=== PATIENT | male | born 1985 | race Caucasian/White ===

== ENCOUNTER 2024-01-10 16:10 | Emergency (ER) | payer MEDICAID, OTHER, SELFPAY ==
[2024-01-10 16:13] VITALS: BP 160/85; PULSE 96; RESP 16; TEMP 36.8; O2SAT 97; BMI 37.6
--- NOTE | 2024-01-10 16:50 | ED.EYEPROB ---
HPI - Eye Problem <Omayra Parrish PA-C - Last Filed: 01/10/24 17:41> General Chief complaint: Eye Problems Stated complaint: foreign object in eye Source: patient Mode of arrival: Family Vehicle History of Present Illness HPI Narrative: 38-year-old male presents this afternoon for left eye discomfort. Yesterday around lunchtime he was trying on sunglasses at a local drug store when the adams tag struck his left eye. He states it was made of a rigid card stalk. He had immediate pain and since then it has worsened. He reports increased tearing, some sensitivity to light and also some whitish thick drainage from the eye. He is denying any changes in his vision overall, he does not wear prescription glasses or contact lenses. He did try an wpwe-bho-[id number] eyedrop called Rohto/Clear eyes, some type of multi symptom drop that actually burned when he instilled it so he stopped. Pain is worse with movement of the eye. No other treatment tried although he did purchase an eye patch. No other complaints, no headache, or other injuries, all other systems are reviewed and are negative. Related Data Allergies Allergy/AdvReac Type Severity Reaction Status Date / Time Sulfa (Sulfonamide Allergy Mild Verified 01/10/24 16:57 Antibiotics) Patient History <Omayra Parrish PA-C - Last Filed: 01/10/24 17:41> Social History Smoking Status: Current every day smoker Exam <Omayra Parrish PA-C - Last Filed: 01/10/24 17:41> Initial Vital Signs Initial Vital Signs: Vital Signs Temperature 98.2 F 01/10/24 16:13 Pulse Rate 96 H 01/10/24 16:13 Respiratory Rate 16 01/10/24 16:13 Blood Pressure 160/85 H 01/10/24 16:13 Pulse Oximetry 97 01/10/24 16:13 Oxygen Delivery Method Room Air 01/10/24 16:13 Reviewed and are normal except for elevated systolic reading. Const Other: Ambulatory, seated, smiling, no distress, pleasantly conversing, wearing black eye patch over left eye. [facility] Head: normal to inspection, normocephalic and atraumatic Nose: external nose normal, nares normal and nasal mucous membranes and turbinates normal Face and sinus: normal facial exam and sinuses nontender Eyes Visual Villarreal: normal visual villarreal by confrontation Alignment and Position: alignment normal and position normal Periorbital: periorbital findings normal Eyelids: eyelids normal Conjunctivae: conjunctival abnormality (Injection and reddened tissues) left Cornea: fluorescein used (Large corneal abrasion at 3o'clock) Pupils: PERRL and accommodation normal EOM: EOM intact bilaterally, no movement deficit and No nystagmus Other: He had immediate relief after 1 drop of proparacaine instillation. Visual acuity is tested with fingers and is intact, general blurriness due to drainage and tearing. Upper eyelid everted tissues are slightly reddened but there is no foreign body or injury. There is some scant white gelatinous drainage from the left eye, nontender lacrimal apparatus, tear ducts patent. Fluorescein exam well-tolerated, Wood's lamp reveals dye uptake demonstrative of a corneal abrasion measuring approximately 3-4 mm x 2-3 mm ovoid irregular shape within the iris at 3:00 o'clock position. Armin's exam is negative. Slit-lamp utilized for magnification lesion appears to be superficial. No foreign body seen. Neck Lymphatic: No lymphadenopathy Neuro Cranial Nerves: No nystagmus <Ursula Stacy DO - Last Filed: 01/16/24 12:09> Initial Vital Signs Initial Vital Signs: Vital Signs Temperature 98.2 F 01/10/24 16:13 Pulse Rate 96 H 01/10/24 16:13 Respiratory Rate 16 01/10/24 16:13 Blood Pressure 160/85 H 01/10/24 16:13 Pulse Oximetry 97 01/10/24 16:13 Oxygen Delivery Method Room Air 01/10/24 16:13 Course <Omayra Parrish PA-C - Last Filed: 01/10/24 17:41> Orders Ordered: Discontinued Medications Fluorescein Sodium (Fluorescein 1 Mg Strip) 1 mg EYE-LEFT NOW ONE Stop: 01/10/24 16:57 Last Admin: 01/10/24 17:01 Dose: 1 mg Documented By: JUAN DAVID Proparacaine HCl (Proparacaine 0.5% Ophth Chio) 1 drops EYE-LEFT NOW ONE Stop: 01/10/24 16:57 Last Admin: 01/10/24 17:00 Dose: 1 drop Documented By: JUAN DAVID Vital Signs Vital signs: Vital Signs - 8 hr 01/10/24 16:13 Temperature 98.2 F Pulse Rate 96 H Respiratory Rate 16 Blood Pressure 160/85 H Pulse Oximetry 97 Oxygen Delivery Method Room Air Reviewed and are normal except for elevated systolic reading today. <Ursula Stacy DO - Last Filed: 01/16/24 12:09> Orders Ordered: Discontinued Medications Fluorescein Sodium (Fluorescein 1 Mg Strip) 1 mg EYE-LEFT NOW ONE Stop: 01/10/24 16:57 Last Admin: 01/10/24 17:01 Dose: 1 mg Documented By: JUAN DAVID Proparacaine HCl (Proparacaine 0.5% Ophth Chio) 1 drops EYE-LEFT NOW ONE Stop: 01/10/24 16:57 Last Admin: 01/10/24 17:00 Dose: 1 drop Documented By: JUAN DAVID Vital Signs Vital signs: Vital Signs - 8 hr 01/10/24 16:13 Temperature 98.2 F Pulse Rate 96 H Respiratory Rate 16 Blood Pressure 160/85 H Pulse Oximetry 97 Oxygen Delivery Method Room Air MDM - Eye Problem <Omayra Parrish PA-C - Last Filed: 01/10/24 17:41> Differential Diagnosis Differential diagnosis: Likely corneal abrasion, conjunctivitis and corneal ulcer MDM Narrative Medical decision making narrative: Clinical exam is consistent with corneal abrasion in the injury that he described was sustained by a piece of card stuck, there is no evidence of any foreign body. He does have some thick drainage I have opted to treat him with an ointment as a lubricant as well as an antimicrobial. Erythromycin has been chosen. I have asked him to return tomorrow for a follow-up he may go to the walk-in clinic any urgent Care Center or return to the emergency department and I will be on duty at that time. Red flag warning signs reviewed in detail. He will seek medical attention if anything worsens overnight. I have asked him to stop using the eye patch, avoid touching or rubbing the eye. Stop the rigv-eyu-lrqzkox eyedrop that caused burning, he can use an artificial tear in between doses however. He has not a contact lens wear although I did consider using a quinolone antimicrobial but his insurance does not cover Ciloxan ointment. He is also allergic to sulfa. Discharge Plan Departure Patient Disposition: Home Clinical Impression: Corneal abrasion Qualifiers: Encounter type: subsequent encounter Laterality: left Qualified Code(s): S05.02XD - Injury of conjunctiva and corneal abrasion without foreign body, left eye, subsequent encounter Instructions: Corneal Abrasion Activity Restrictions/Additional Instructions: Do not use the eye patch, avoid touching or rubbing the eye, use good handwashing. You may use sunglasses to avoid glare or bright light. Try to keep her activity light and do I rest so avoid any video games or bright televisions or anything that causes a lot of movement this includes reading books. I have prescribed an antibiotic ointment that she will instill into the left eye 4 times a day, you may take ibuprofen or Tylenol for pain, stop the eyedrop that you purchased, if you need additional lubrication simply purchase an artificial tear or lubricating eye drop, avoid anything that states multi symptom, get the red out. Do not use Visine. I would like you to see a provider in follow-up you have the option of our walk-in clinic which opens at 9:00 a.m., or you may return to the emergency department I will be here at 11:00 a.m.. There could be a wait, depending on the number of patients that come in, but if you are willing to wait I am happy to see you for continuity of care. Just advise the triage nurse and show them this paperwork that you plan to see Omayra ROBERTSON. if you have any worsening symptoms overnight then please return immediately to the emergency department. Referrals: Dinah Mata PA-C [Primary Care Provider] - Stand Alone Forms: Patient Portal/API ED Sign-out <Ursula Stacy DO - Last Filed: 01/16/24 12:09> Cosign ED Attending Peter Attestation: I was available for consultation.
[2024-01-10] MEDS: PROPARACAINE 0.5% OPHTH SOL 1 DROPS EYE-LEFT (17:00)
[2024-01-10] MEDS: FLUORESCEIN 1 MG STRIP EYE-LEFT (17:01)
[2024-01-10 17:35] VITALS: BP 136/73; PULSE 88; RESP 14; O2SAT 96
== END 2024-01-10 17:38 | disposition home or self-care (01) ==
PROVIDERS: Emergency Provider Physician Assistant Medical; Family Provider Internal Medicine; PCP Internal Medicine
DX: S05.02XA Injury of conjunctiva and corneal abrasion without foreign body, left eye, initial encounter (principal)
CPT/HCPCS: 99282

== ENCOUNTER 2024-01-11 17:28 | Emergency (ER) | payer MEDICAID, OTHER, SELFPAY ==
[2024-01-11 17:31] VITALS: BP 168/88; PULSE 95; RESP 16; TEMP 36.7; O2SAT 100; BMI 37.6
[2024-01-11] MEDS: FLUORESCEIN 1 MG STRIP EYE-LEFT (17:34)
[2024-01-11] MEDS: PROPARACAINE 0.5% OPHTH SOL 1 DROPS EYE-LEFT (17:34)
--- NOTE | 2024-01-11 17:54 | ED_ITS ---
HPI - Eye Problem <Omayra Parrish PA-C - Last Filed: 01/11/24 18:08> General Chief complaint: Eye Problems Stated complaint: told to return for f/u Time Seen by Provider: 01/11/24 17:52 History of Present Illness HPI Narrative: 38-year-old male returns for 24 hour follow-up. He was diagnosed with a left corneal abrasion by this provider and seen yesterday in the emergency department. He was treated with erythromycin ophthalmic ointment which he is tolerating. Overall he feels dramatically improved. He has no more sensitivity to light and his discomfort has significantly resolved. Last night was challenging as again he was sensitive and still painful but overall he feels much better. No new symptoms, no other complaints. All other systems are reviewed and are negative. Related Data Previous Rx's Medication Instructions Recorded erythromycin 5 mg/gram (0.5 %) eye 0.5 inch EYE-LEFT Q6H #3.5 grams 01/10/24 ointment Allergies Allergy/AdvReac Type Severity Reaction Status Date / Time Sulfa (Sulfonamide Allergy Mild Verified 01/10/24 16:57 Antibiotics) Review of Systems <Omayra Parrish PA-C - Last Filed: 01/11/24 18:08> Review of Systems Narrative: All other systems reviewed and are negative. Constitutional Comments: Eyes Comments: Patient History <mOayra Parrish PA-C - Last Filed: 01/11/24 18:08> Social History Smoking Status: Current every day smoker Smoking Status: Current every day smoker tobacco type: cigarettes Substance Use Type: does not use Exam <Omayra Parrish PA-C - Last Filed: 01/11/24 18:08> Initial Vital Signs Initial Vital Signs: Vital Signs Temperature 98.1 F 01/11/24 17:31 Pulse Rate 95 H 01/11/24 17:31 Respiratory Rate 16 01/11/24 17:31 Blood Pressure 168/88 H 01/11/24 17:31 Pulse Oximetry 100 01/11/24 17:31 Oxygen Delivery Method Room Air 01/11/24 17:31 Reviewed and are normal except for elevated blood pressure reading today. Const Other: Smiling, seated, no distress. Wearing sunglasses. Eyes Other: Reexamined with fluorescein installation in the left eye with proparacaine, the corneal abrasion that was seen yesterday has dramatically improved it is about 1-2 mm at the 4 o'clock position, within the iris, no significant pooling. Estmated 65-70% reduction in size. EOM's normal. Pupils PERRL. No periorbital tenderness. Upper eyelid everted and there is no evidence of any injury or foreign body.Visual acuity intact to fingers. <Ally Deleon MD - Last Filed: 01/12/24 18:29> Initial Vital Signs Initial Vital Signs: Vital Signs Temperature 98.1 F 01/11/24 17:31 Pulse Rate 95 H 01/11/24 17:31 Respiratory Rate 16 01/11/24 17:31 Blood Pressure 168/88 H 01/11/24 17:31 Pulse Oximetry 100 01/11/24 17:31 Oxygen Delivery Method Room Air 01/11/24 17:31 Course <Omayra Parrish PA-C - Last Filed: 01/11/24 18:08> Orders Ordered: Discontinued Medications Fluorescein Sodium (Fluorescein 1 Mg Strip) 1 mg EYE-LEFT NOW ONE Stop: 01/11/24 17:31 Last Admin: 01/11/24 17:34 Dose: 1 mg Documented By: KATT Proparacaine HCl (Proparacaine 0.5% Ophth Chio) 1 drops EYE-LEFT PRN PRN PRN Reason: Pain, Moderate (4-6) Last Admin: 01/11/24 17:34 Dose: 1 drop Documented By: KATT Vital Signs Vital signs: Vital Signs - 8 hr 01/11/24 17:31 Temperature 98.1 F Pulse Rate 95 H Respiratory Rate 16 Blood Pressure 168/88 H Pulse Oximetry 100 Oxygen Delivery Method Room Air <Ally Deleon MD - Last Filed: 01/12/24 18:29> Orders Ordered: Discontinued Medications Fluorescein Sodium (Fluorescein 1 Mg Strip) 1 mg EYE-LEFT NOW ONE Stop: 01/11/24 17:31 Last Admin: 01/11/24 17:34 Dose: 1 mg Documented By: KATT Proparacaine HCl (Proparacaine 0.5% Ophth Chio) 1 drops EYE-LEFT PRN PRN PRN Reason: Pain, Moderate (4-6) Last Admin: 01/11/24 17:34 Dose: 1 drop Documented By: KATT Vital Signs Vital signs: Vital Signs - 8 hr 01/11/24 17:31 Temperature 98.1 F Pulse Rate 95 H Respiratory Rate 16 Blood Pressure 168/88 H Pulse Oximetry 100 Oxygen Delivery Method Room Air MDM - Eye Problem <Omayra Parrish PA-C - Last Filed: 01/11/24 18:08> Medical Records Medical records narrative: Seen yesterday by this provider please refer to my detailed note. MDM Narrative Medical decision making narrative: He was seen yesterday by this provider and diagnosed with significant left corneal abrasion measuring about 4 mm x 2-3 mm. He was treated with erythromycin ophthalmic ointment, this is a follow up exam 24 hours later and he has had significant reduction in the abrasion size and depth. Overall he feels much better. No clinical findings on examination to suggest retained foreign body. Discharge Plan Departure Patient Disposition: Home Clinical Impression: Corneal abrasion Qualifiers: Encounter type: subsequent encounter Laterality: left Qualified Code(s): S05.02XD - Injury of conjunctiva and corneal abrasion without foreign body, left eye, subsequent encounter Instructions: Corneal Abrasion Activity Restrictions/Additional Instructions: You have had significant improvement based on your examination today and this makes me happy I am glad you are feeling better. This should resolve in the next couple of days, please follow up with your eye provider if your symptoms persist, we also have the walk-in clinic as well as the emergency department if anything changes or worsens. Continue the antibiotic ointment as prescribed, sunglasses, and keep her activity light. Thanks again for coming in for follow- up. Prescriptions: No Action erythromycin 5 mg/gram (0.5 %) ointment 0.5 inch EYE-LEFT Q6H Qty: 3.5 0RF Rx Instructions: instill half inch ribbon into left eye 4 times per day while awake. Referrals: Dinah Mata PA-C [Primary Care Provider] - Stand Alone Forms: Patient Portal/API ED Sign-out <Ally Deleon MD - Last Filed: 01/12/24 18:29> Cosign ED Attending Dilciaature Attestation: I was immediately available in the department for consultation throughout this patient's visit. Ally Deleon MD
--- NOTE | 2024-01-11 18:07 | PC.NURSE ---
Left eye pain, sensitivity to light; states he was trying on sunglasses a couple days ago when he scraped his cornea. Pt reports eye feels better today
== END 2024-01-11 18:08 | disposition home or self-care (01) ==
PROVIDERS: Emergency Provider Physician Assistant Medical; Family Provider Internal Medicine; PCP Internal Medicine
DX: S05.02XD Injury of conjunctiva and corneal abrasion without foreign body, left eye, subsequent encounter (principal)
CPT/HCPCS: 99282

== ENCOUNTER 2024-03-18 23:17 | Emergency (ER) | payer OTHER, MEDICAID, SELFPAY ==
[2024-03-18 23:25] VITALS: BP 165/93; BP 181/99; PULSE 108; PULSE 97; RESP 16; TEMP 36.7; O2SAT 99; BMI 36.2
[2024-03-18 23:26] VITALS: BP 165/93; PULSE 100; O2SAT 100
[2024-03-18 23:30] VITALS: PULSE 102; O2SAT 96
--- NOTE | 2024-03-18 23:31 | ED_ITS ---
HPI - URI/Sore Throat General Chief Complaint: Upper Respiratory Symptoms Stated Complaint: ill, coughing, congested, struggling to breath Time Seen by Provider: 03/18/24 23:31 History of Present Illness HPI Narrative: 38-year-old male current smoker, complains of 1 month duration of cough, mostly dry, no blood components, with increased shortness of breath last couple of days, coughing more, no fevers or chills. No injury or trauma. No history of blood clots to legs or lungs, no leg pain or swelling symptoms. No chest discomfort, except with coughing. Related Data Previous Rx's Medication Instructions Recorded doxycycline hyclate 100 mg capsule 100 mg PO BID #20 caps 03/19/24 Allergies Allergy/AdvReac Type Severity Reaction Status Date / Time Sulfa (Sulfonamide Allergy Mild Verified 01/10/24 16:57 Antibiotics) Patient History Social History Smoking Status: Current every day smoker Smoking Status: Current every day smoker tobacco type: cigarettes Substance Use Type: does not use Exam Narrative Exam Narrative: GENERAL: Well-developed patient, in mild distress. HEAD: Atraumatic. Normocephalic. EYES: Pupils equal round and reactive. Extraocular motions intact. No scleral icterus. No injection or drainage. ENT: Nose without bleeding, purulent drainage. Throat without erythema, tonsillar hypertrophy or exudate. Airway patent. NECK: Trachea midline. Non tender CARDIOVASCULAR: Regular rate and rhythm without murmurs, gallops, or rubs. RESPIRATORY: Clear to auscultation. Breath sounds equal bilaterally. No wheezes, rales, or rhonchi. GASTROINTESTINAL: Abdomen soft, non-tender, nondistended. EXTREMITIES: No edema or joint tenderness. BACK: Nontender without deformity or crepitance. No flank tenderness. NEURO: AOx3. Motor functions grossly nonfocal SKIN: No rash or erythema of visible areas Initial Vital Signs Initial Vital Signs: Vital Signs Temperature 98.1 F 03/18/24 23:25 Pulse Rate 108 H 03/18/24 23:25 Respiratory Rate 16 03/18/24 23:25 Blood Pressure 165/93 H 03/18/24 23:25 Pulse Oximetry 99 03/18/24 23:25 Oxygen Delivery Method Room Air 10/30/24 23:25 Course Orders Ordered: ED Orders 03/18/24 23:26 Covid-19 + FLU A/B + RSV - PCR Stat 03/18/24 23:37 XR chest 2V Stat 03/19/24 01:25 BNP [NT-proBNP (BNP-Adult 18+)] Stat Discontinued Medications Albuterol (Albuterol 2.5 Mg/3 Ml Neb (Adult)) 2.5 mg INH NOW ONE Stop: 03/18/24 23:38 Last Admin: 03/18/24 23:56 Dose: 2.5 mg Documented By: ISIDRO Albuterol (Albuterol Hfa Prepack) 1 box MISC DIRECTED ONE Stop: 03/19/24 02:11 Last Admin: 03/19/24 02:17 Dose: 1 box Doxycycline Hyclate (Doxycycline Hyclate 100 Mg Tablet) 100 mg PO NOW ONE Stop: 03/19/24 01:19 Last Admin: 03/19/24 01:30 Dose: 100 mg Documented By: ISIDRO Vital Signs Vital signs: Vital Signs - 8 hr 03/18/24 23:25 03/18/24 23:25 03/18/24 23:25 Temperature 98.1 F Pulse Rate 108 H 97 H Respiratory Rate 16 Blood Pressure 165/93 H 181/99 H Pulse Oximetry 99 99 Oxygen Delivery Method Room Air 03/18/24 23:26 03/18/24 23:26 03/18/24 23:30 Temperature Pulse Rate 100 H 102 H Respiratory Rate Blood Pressure 165/93 H Pulse Oximetry 100 96 Oxygen Delivery Method 03/18/24 23:48 03/18/24 23:48 03/19/24 00:00 Temperature Pulse Rate 97 H 96 H Respiratory Rate Blood Pressure 166/76 H Pulse Oximetry 97 98 Oxygen Delivery Method 03/19/24 00:30 03/19/24 01:08 03/19/24 01:09 Temperature 98.7 F Pulse Rate 102 H 101 H Respiratory Rate 18 20 Blood Pressure Pulse Oximetry 95 98 98 Oxygen Delivery Method Room Air 03/19/24 01:09 03/19/24 01:30 03/19/24 01:30 Temperature Pulse Rate 100 H Respiratory Rate Blood Pressure 144/79 H 153/91 H Pulse Oximetry 96 Oxygen Delivery Method 03/19/24 02:00 03/19/24 02:00 Temperature Pulse Rate 95 H Respiratory Rate 18 Blood Pressure 137/71 Pulse Oximetry 94 Oxygen Delivery Method MDM - URI/Sore Throat Lab Data Attestation: I reviewed the patient's lab results. Lab results narrative: COVID negative, flu negative, RSV negative. BNP 182 Labs: Lab Results 03/18/24 03/19/24 Range/Units 23:26 01:25 NT-Pro-B Natriuret Pep 182 H (<125) pg/mL SARS-CoV-2 (PCR) Negative (Negative) Influenza A (RT-PCR) Flu a negative (NEGATIVE) Influenza B (RT-PCR) Flu b negative (NEGATIVE) RSV (PCR) Negative (Negative) Imaging Data Chest x-ray: Radiologist's Impression: Close Chest X-Ray (Signed) Greg Crowder - 03/18/24 Launch?[address] [address] XRay Report Signed Patient: Jim Flores MR#: [id number] : 1985 Acct:[id number] Age/Sex: 38 / M Date of Service: 03/18/24 Loc: ED Accession Number: [id number] Procedure: XR chest 2V Ordering Provider: Yoni Flor MD PROCEDURE: XR CHEST 2V INDICATIONS: coughing, SOB tonight TECHNIQUE: 2 views of the chest were acquired. COMPARISON: [facility], CHEST 2 VIEW, 04/11/2015, 13:25. FINDINGS: Surgical changes and devices: None. Lungs and pleura: Moderate diffuse interstitial prominence. No focal consolidation. No pneumothorax. Small bilateral pleural effusions. Mediastinum: Mediastinal contours are normal. Heart size is normal. Bones and chest wall: No suspicious bony abnormalities. Soft tissues appear unremarkable. IMPRESSION: Diffuse interstitial prominence and small bilateral pleural effusions. Findings are nonspecific but may represent an infectious or inflammatory process although pulmonary edema may have a similar appearance if clinically appropriate. No dense consolidations identified. Dictated by: Greg Crowder M.D. on 03/19/2024 at 0:34 Approved by: Greg Crowder M.D. on 03/19/2024 at 0:35 [facility] Narrative Medical decision making narrative: 38-year-old male smoker with one month cough, increased shortness of breath last couple of days with increased coughing. Lungs clear, no wheezes or crackles, normal oxygenation, frequent coughing noted. Chest x-ray requested. COVID/flu swab requested. Chest x-ray shows possible small bilateral pleural effusions, infection versus possible pulmonary edema. See radiology report. Trial of SVN, improved symptoms BNP added, not elevated. We will treat for infection, oral doxycycline 1st dose now, prescription sent to pharmacy. Inhaler sent to pharmacy. Spacer requested to use with inhaler. Patient encouraged to follow up with regular doctor early this week. Return precautions discussed Discharge Plan Departure Patient Disposition: Home Clinical Impression: Dyspnea, Pneumonia, Smoker Activity Restrictions/Additional Instructions: Ongoing weeks duration cough, current smoker, recent increased shortness of breath and cough. Chest x-ray suspicious for possible pneumonia. First dose oral antibiotic doxycycline given, prescription sent to your pharmacy. Inhaler dispensed for control of cough symptoms and to help with shortness of breath symptoms. Small pleural effusions noted in bilateral lungs. Recheck lung examination with your regular doctor early this week. Take antibiotics as prescribed. Use inhaler 2 puffs 4 times daily for this next week. Return to this/nearest emergency department for any change worsening symptoms or any concerns prior You are also encouraged to stop smoking. Consider discussion of smoking cessation strategies with your regular provider Prescriptions: New doxycycline hyclate 100 mg capsule 100 mg PO BID Qty: 20 0RF Referrals: Dinah Mata PA-C [Primary Care Provider] - Stand Alone Forms: Patient Portal/API/Survey
--- NOTE | 2024-03-18 23:37 | DI.RAD.S_ITS ---
PROCEDURE: XR CHEST 2V INDICATIONS: coughing, SOB tonight TECHNIQUE: 2 views of the chest were acquired. COMPARISON: [facility], , CHEST 2 VIEW, 04/11/2015, 13:25. FINDINGS: Surgical changes and devices: None. Lungs and pleura: Moderate diffuse interstitial prominence. No focal consolidation. No pneumothorax. Small bilateral pleural effusions. Mediastinum: Mediastinal contours are normal. Heart size is normal. Bones and chest wall: No suspicious bony abnormalities. Soft tissues appear unremarkable. IMPRESSION: Diffuse interstitial prominence and small bilateral pleural effusions. Findings are nonspecific but may represent an infectious or inflammatory process although pulmonary edema may have a similar appearance if clinically appropriate. No dense consolidations identified. Dictated by: Greg Crowder M.D. on 03/19/2024 at 0:34 Approved by: Greg Crowder M.D. on 03/19/2024 at 0:35
[2024-03-18 23:48] VITALS: BP 166/76; PULSE 97; O2SAT 97
[2024-03-18] MEDS: ALBUTEROL 2.5 MG/3 ML NEB (ADULT) INH (23:56)
[2024-03-19] VITALS: PULSE 96; O2SAT 98
[2024-03-19 00:30] VITALS: PULSE 102; RESP 18; O2SAT 95
[2024-03-19 00:35] LABS: Influenza A - CEPHEID Flu A NEGATIVE (NEGATIVE); Influenza B - CEPHEID Flu B NEGATIVE (NEGATIVE); Respiratory Syncytial Virus Negative (Negative)
[2024-03-19 00:37] LABS: COVID-19 CEPHEID 4-PLEX PCR Negative (Negative)
[2024-03-19 01:08] VITALS: O2SAT 98
[2024-03-19 01:09] VITALS: BP 144/79; PULSE 101; RESP 20; TEMP 37.1; O2SAT 98
[2024-03-19 01:30] VITALS: BP 153/91; PULSE 100; O2SAT 96
[2024-03-19] MEDS: DOXYCYCLINE HYCLATE 100 MG TABLET PO (01:30)
[2024-03-19 01:52] LABS: NT-proBNP (BNP-Adult 18+) 182 pg/mL (<125)
[2024-03-19 02:00] VITALS: BP 137/71; PULSE 95; RESP 18; O2SAT 94
[2024-03-19] MEDS: ALBUTEROL HFA PREPACK 1 BOX MISC (02:17)
== END 2024-03-19 02:20 | disposition home or self-care (01) ==
PROVIDERS: Emergency Provider Emergency Medicine; Family Provider Internal Medicine; PCP Internal Medicine
DX: J18.9 Pneumonia, unspecified organism (principal); R06.00 Dyspnea, unspecified; F17.200 Nicotine dependence, unspecified, uncomplicated
CPT/HCPCS: 0241U; 36415; 71046; 83880; 99284; J7613

== ENCOUNTER 2024-08-23 20:30 | Emergency (ER) | payer OTHER, SELFPAY ==
[2024-08-23 20:33] VITALS: BP 168/96; PULSE 99; RESP 16; TEMP 36.8; O2SAT 99; BMI 38.7
[2024-08-23 20:58] LABS: Bacteria Urine None Seen; Culture Indicated Urine Cult Not Indicated; RBC Urine 0-1/HPF (0-5/HPF); Squamous Epithelial Cell Urine 0-1 /HPF (0-5/HPF); Urine Volume 10mL (spun); WBC Urine None Seen (0-5/HPF)
--- NOTE | 2024-09-10 06:44 | ED_ITS ---
HPI - Back Pain/Injury General Chief Complaint: Back Pain/Injury Stated Complaint: back px, urinary issue Source: patient Related Data Previous Rx's Medication Instructions Recorded doxycycline hyclate 100 mg capsule 100 mg PO BID #20 caps 03/19/24 Allergies Allergy/AdvReac Type Severity Reaction Status Date / Time Sulfa (Sulfonamide Allergy Mild Verified 01/10/24 16:57 Antibiotics) Patient History tobacco type: cigarettes Exam Initial Vital Signs Initial Vital Signs: Vital Signs Temperature 98.3 F 08/23/24 20:33 Pulse Rate 99 H 08/23/24 20:33 Respiratory Rate 16 08/23/24 20:33 Blood Pressure 168/96 H 08/23/24 20:33 Pulse Oximetry 99 08/23/24 20:33 Oxygen Delivery Method Room Air 08/23/24 20:33 MDM - Back Pain/Injury Lab Data Labs: Lab Results 08/23/24 Range/Units 20:41 Urine RBC 0-1/hpf (0-5/HPF) Urine WBC None seen (0-5/HPF) Ur Squamous Epith Cells 0-1 /hpf (0-5/HPF) Urine Bacteria None seen (None) Ur Culture Indicated? Cult not indicated Vol Urine Centrifuged 10ml (spun) Urine Dip Bedside Urine Glucose Negative Bedside Urine Bilirubin - Negative Bedside Urine Ketone - Negative Urine Specific [place] 1.025 Bedside Urine Occult Blood +/- Bedside Urine pH 6.0 Bedside Urine Protein - Negative Bedside Urine Urobilinogen - Negative Bedside Urine Nitrite - Negative Bedside Urine Leukocytes - Negative Esterase Discharge Plan Departure Patient Disposition: Left Without Being Seen Clinical Impression: Patient left without being seen Prescriptions: No Action doxycycline hyclate 100 mg capsule 100 mg PO BID Qty: 20 0RF
== END 2024-08-23 22:04 | disposition left against medical advice (07) ==
PROVIDERS: Emergency Provider Family Medicine; Family Provider Internal Medicine; PCP Internal Medicine
DX: M54.9 Dorsalgia, unspecified (principal); R39.12 Poor urinary stream
CPT/HCPCS: 81003; 81015; 99281

== ENCOUNTER 2025-01-23 20:10 | Emergency (ER) | payer OTHER, SELFPAY ==
[2025-01-23 20:14] VITALS: BP 184/106; PULSE 104; RESP 18; TEMP 36.3; O2SAT 97; BMI 35.9
== END 2025-01-23 22:32 | disposition left against medical advice (07) ==
PROVIDERS: Emergency Provider Student in an Organized Health Care Education/Training Program; Family Provider Internal Medicine; PCP Internal Medicine
CPT/HCPCS: 99281

== ENCOUNTER 2025-03-09 02:16 | Emergency (ER) | payer OTHER, SELFPAY ==
--- NOTE | 2025-03-09 02:24 | ED_ITS ---
HPI - General Adult General Chief complaint: Upper Respiratory Symptoms Stated complaint: Cough, Congestion, Headache, Fever Time Seen by Provider: 03/09/25 02:24 History of Present Illness HPI narrative: 39-year-old male smoker 20 pack years, no chronic lung disease, no use of home oxygen or inhales, no history of reactive airways, with 3 days duration dry cough, some headache and body aches. Denies chest pain, or significant shorntess of breath. No known exposure to documented Covid, but has had recent un-tested close contact exposure to persons with similar duration chest cold like symptoms. No current or recent oral antibiotics. Related Data Previous Rx's ?Medication ?Instructions ?Recorded doxycycline hyclate 100 mg capsule 100 mg PO BID #20 c aps 03/19/24 benzonatate 200 mg capsule 200 mg PO BID-TID PRN cough #20 03/09/25 caps Allergies Allergy/AdvReac Type Severity Reaction Status Date / Time Sulfa (Sulfonamide Allergy Mild ITCHING Verified 03/09/25 02:32 Antibiotics) Patient History Social History Smoking Status: Current every day smoker tobacco type: cigarettes Exam Narrative Exam Narrative: GENERAL: Well-developed patient, in mild distress. HEAD: Atraumatic. Normocephalic. EYES: Pupils equal round and reactive. Extraocular motions intact. No scleral icterus. No injection or drainage. ENT: Nose without bleeding, purulent drainage. Throat without erythema, tonsillar hypertrophy or exudate. Airway patent. NECK: Trachea midline. Non tender CARDIOVASCULAR: Regular rate and rhythm without murmurs, gallops, or rubs. RESPIRATORY: Clear to auscultation. Breath sounds equal bilaterally. No wheezes, rales, or rhonchi. GASTROINTESTINAL: Abdomen soft, non-tender, nondistended. EXTREMITIES: No edema or joint tenderness. BACK: Nontender without deformity or crepitance. No flank tenderness. NEURO: AOx3. Motor functions grossly nonfocal. SKIN: No rash or erythema of visible areas Initial Vital Signs Initial Vital Signs: Vital Signs Pulse Rate 100 H 03/09/25 02:25 Blood Pressure 158/94 H 03/09/25 02:25 Pulse Oximetry 97 03/09/25 02:25 Course Orders Ordered: Discontinued Medications Albuterol (Albuterol Hfa Prepack) 1 box [facility] [place] DIRECTED ONE Stop: 03/09/25 03:02 Last Admin: 03/09/25 03:23 Dose: 1 box Documented By: DANNA Benzonatate (Benzonatate 100 Mg Capsule) 100 mg PO NOW ONE Stop: 03/09/25 03:02 Last Admin: 03/09/25 03:29 Dose: 100 mg Documented By: LINA Vital Signs Vital signs: Vital Signs - 8 hr 03/09/25 02:32 Temperature 98.4 F Pulse Rate 93 H Respiratory Rate 18 Blood Pressure 146/86 H Pulse Oximetry 95 Oxygen Delivery Method Room Air Medical Decision Making Lab Data Labs: Lab Results 03/09/25 Range/Units 02:25 SARS-CoV-2 (PCR) Negative (Negative) Influenza A (RT-PCR) Flu a negative (NEGATIVE) Influenza B (RT-PCR) Flu b negative (NEGATIVE) RSV (PCR) Negative (Negative) MDM Narrative Medical decision making narrative: 39-yo male smoker, 3d duration URI symptoms with household contact to persons with similar symptoms. Afebrile, SIRS Screen negative. No respiratory distress, speaking in full sentences, normal RA oxygen saturation. Declines CXR when offered. Covid Flu RSV swab negative. Would like cough medicine. Trial of Tessalon Pearles, first dose now, Rx sent. Albut MDI with spacer dispensed with RT teaching, 2 puffs four times daily this next week, then use as needed. Advised re-check if not improving next few days. Return precaustions discussed. DC home in stable condition. Discharge Plan Departure Patient Disposition: Home Clinical Impression: Acute upper respiratory infection Activity Restrictions/Additional Instructions: Three days duration cough, history of smoking. Lung exam without wheezing or crackles, normal oxygenation. Discussed chest x-ray, declined. Swab for COVID influenza was negative. Trial of Tessalon anti cough medication, dose was given, prescription sent to your pharmacy. Trial of albuterol inhaler with spacer, take 2 puffs 4 times daily for this next week or so, then as needed. Recheck with your regular doctor if symptoms not improving in the next few days. Return to this/nearest emergency department for any change worsening symptoms or any concerns prior. You were also encouraged to stop smoking, which will help your lung Health, and reduce your risk for associated heart disease and stroke and cancers. Prescriptions: New benzonatate 200 mg capsule 200 mg PO BID-TID PRN (Reason: cough) Qty: 20 0RF No Action doxycycline hyclate 100 mg capsule 100 mg PO BID Qty: 20 0RF Referrals: Dinah Mata PA-C [Primary Care Provider, Emergency Medicine] Stand Alone Forms: Patient Portal/API
[2025-03-09 02:25] VITALS: BP 158/94; PULSE 100; O2SAT 97
[2025-03-09 02:30] VITALS: BP 146/86; PULSE 95; O2SAT 97
[2025-03-09 02:32] VITALS: BP 146/86; PULSE 93; RESP 18; TEMP 36.9; O2SAT 95; BMI 36.2
[2025-03-09 03:00] VITALS: BP 139/70; PULSE 92; O2SAT 96
[2025-03-09 03:12] LABS: Influenza A - CEPHEID Flu A NEGATIVE (NEGATIVE); Influenza B - CEPHEID Flu B NEGATIVE (NEGATIVE)
[2025-03-09 03:13] LABS: COVID-19 CEPHEID 4-PLEX PCR Negative (Negative)
[2025-03-09] MEDS: ALBUTEROL HFA PREPACK 1 BOX MISC (03:23)
[2025-03-09] MEDS: BENZONATATE 100 MG CAPSULE PO (03:29)
[2025-03-09 03:30] VITALS: BP 154/95; PULSE 102; O2SAT 97
== END 2025-03-09 03:46 | disposition home or self-care (01) ==
PROVIDERS: Emergency Provider Emergency Medicine; Family Provider Internal Medicine; PCP Internal Medicine
DX: J06.9 Acute upper respiratory infection, unspecified (principal)
CPT/HCPCS: 87637; 99283